=== PATIENT | male | born 1965 | race Caucasian/White ===

== ENCOUNTER 2016-06-27 11:09 | Day surgery (SDC) | payer OTHER ==
[2016-06-27] MEDS ORDERED: IV START KIT ONE (11:14)
[2016-06-27] MEDS ORDERED: LACTATED RINGERS 1,000 ML ONE (11:14)
[2016-06-27] MEDS ORDERED: CEFAZOLIN SODIUM 2 GRAM PREMIX 2 G in Premix (D5W) 100 ml 1 EACH IV PRN (11:39)
[2016-06-27] MEDS ORDERED: CEFAZOLIN SODIUM 2 GRAM PREMIX 100 ML IV ONE (11:39)
[2016-06-27] MEDS ORDERED: LACTATED RINGERS 1,000 ML IV SCH ×3 (11:39→17:45)
[2016-06-27] MEDS ORDERED: LIDOCAINE 1% 2 ML VIAL ID PRN (11:39)
[2016-06-27] MEDS ORDERED: FENTANYL 100 MCG/2 ML VIAL ONE ×2 (13:53→15:16)
[2016-06-27] MEDS ORDERED: LIDOCAINE 1%/EPI 1:100,000 (MULTI DOSE) 30 ML VIAL ONE (13:56)
[2016-06-27] MEDS ORDERED: METOCLOPRAMIDE HCL 5 MG/ML 2ML VIAL ONE (14:19)
[2016-06-27] MEDS ORDERED: PROPOFOL 20 ML IV ONE (14:19)
[2016-06-27] MEDS ORDERED: ROCURONIUM BROMIDE 10 MG/ML DOSE IV ONE ×2 (14:19→16:51)
[2016-06-27] MEDS ORDERED: HYDROMORPHONE HCL 2 MG/ML SYRINGE ONE (14:20)
[2016-06-27] MEDS ORDERED: ATROPINE SULFATE 0.4 MG/1 ML VIAL IV PRN (14:33)
[2016-06-27] MEDS ORDERED: HYDRALAZINE HCL 20 MG/1 ML VIAL IV PRN (14:33)
[2016-06-27] MEDS ORDERED: MORPHINE SULFATE 4 MG/ML SYRINGE IV PRN (14:33)
[2016-06-27] MEDS ORDERED: NALOXONE HCL 0.4 MG/ML VIAL IV PRN (14:33)
[2016-06-27] MEDS ORDERED: PROMETHAZINE HCL 25 MG/ML VIAL IM PRN (14:33)
[2016-06-27] MEDS ORDERED: ONDANSETRON 4 MG/2ML 2 ML VIAL IV PRN ×2 (14:33→17:45)
[2016-06-27] MEDS ORDERED: MEPERIDINE 25 MG/ML SYRINGE IV PRN (14:33)
[2016-06-27] MEDS ORDERED: ONDANSETRON 4 MG/2ML 2 ML VIAL ONE (16:51)
[2016-06-27] MEDS ORDERED: MEPERIDINE 25 MG/ML SYRINGE ONE (17:31)
[2016-06-27 17:41] LABS: HEMATOCRIT 34.5 % (32.0-52.0); HEMOGLOBIN 11.3 gm/l (14.0-18.0)
[2016-06-27] MEDS ORDERED: HYDROMORPHONE HCL 1 MG/ML SYRINGE IV PRN (17:45)
[2016-06-27] MEDS ORDERED: HYDROMORPHONE HCL 0.5 MG/0.5 ML SYRINGE IV PRN (17:53)
--- NOTE | 2016-06-27 18:33 | PCMBPN ---
Brief Post Op Note: Date of Procedure: 06/27/16 Preoperative Diagnosis: 1. RIH Postoperative Diagnosis: 1. Same Procedure: laparoscopic converted to open RIH repair with mesh Surgeon: Lisa Loyola MD Assist:Julia Kunz Anesthesia: general Findings: see dictation Condition: stable Complications: none IV Fluids: see anesthesia report Urine Output: see anesthesia report mLs Estimated Blood Loss: 1000 mLs Tourniquet Time: N/A Specimens: N/A Implants: 3x6cm prolene mesh Drains: [N/A]
[2016-06-27] MEDS ORDERED: OXYCODONE/ACETAMINOPHEN 5/325 MG TABLET ONE (18:48)
[2016-06-27] MEDS: OXYCODONE/ACETAMINOPHEN 5/325 MG TABLET PO PRN (18:51)
[2016-06-28] MEDS: OXYCODONE/ACETAMINOPHEN 5/325 MG TABLET PO PRN (01:09)
[2016-06-28 02:20] VITALS: BP 101/72
--- NOTE | 2016-06-28 14:00 | OP ---
Srinivas Murdock [id number] : 1965 DATE OF SERVICE: 06/27/2016 PREPROCEDURE DIAGNOSIS: Right inguinal hernia. POSTPROCEDURE DIAGNOSIS: Right inguinal hernia. PROCEDURE PERFORMED: Laparoscopic to open right inguinal hernia repair with mesh. SURGEON: Dr. Lisa Loyola ANESTHESIA: General. ENDBAND CUTTER HAND: Julia Kunz FINDINGS: A very large inguinal scarred incarcerated right inguinal hernia with actually a lot of oozing and bleeding during the procedure even when using a Ligasure. I was unable to complete the procedure laparoscopically because of the oozing and bleeding, unknown the reason for the bleeding, generally this is very avascular. I kept trying to continue on thinking I would get past the area that was bleeding and I just was not able to. Eventually, I decided after getting bleeding under control and being unsuccessful with continuing dissection and getting into more bleeding that I would just get hemostasis and then go to open. TECHNIQUE: The patient was brought back to the operating room and placed under general anesthesia. The abdomen, inguinal, and scrotal regions were prepped and draped in sterile surgical fashion. Local anesthetic was placed just inferior to the umbilicus and a 15 blade scalpel was used to make a 3 cm transverse incision. Electrocautery was used to cut through the subcutaneous tissue down to the level of the fascia. The fascia was opened in the anterior rectus sheath with electrocautery and the rectus muscle was pushed aside and a spacer port was placed anterior to the posterior rectus sheath and placed down to the pubic tubercle and into position. Then the camera was placed down the port and the balloon was inflated 35 times. Once that was up it was noted to be in good position on camera. I could see the pubic tubercle clearly and there was no bowel on the camera. Once we held that in place for about 30 seconds we deflated it, pulled the camera and the balloon out and inflated the spacer balloon that holds the port in place and then placed our CO2 at 15 mmHg. I used Kittner's to open up the dissection and get the peritoneum down everywhere except for at the basic hernia site. Then I looked at the hernia site and there was a massive glob of tissue between the femoral and inguinal areas and I started out superior and lateral as this is generally the area of the hernia. I tried to figure out where exactly and there really was not much of a plane. There is usually more of a plane that is easier to find and just trying to tease apart with the Kittner's and not really dissecting that hard all of the sudden I had a lot of bleeding. I got the suction irrigation out and suctioned the area. Tried to use a clip public address announcer to get control of the bleeding and then continued dissection only to have some more bleeding. I used the clip public address announcer again for control and then thought okay I am most likely passed and then continued more dissection and had some more oozing, so then I got the Ligasure out thinking I would just divide the sac down that is around this hernia and get down underneath it and then pull the hernia down after getting through the thick sac. I started dissecting with this and even had oozing just with dissecting with the Ligasure itself, so I would use the Ligasure and have oozing and I would have to stop and get control of it with the Ligasure and continue dissection. I started worrying that I might have bladder wall or something stuck in the hernia as everything was so stuck together and cemented together and I did not have really good planes like I normally have, so I decided to end my dissection because I did not want to get into anything structure jim that I did not want to be in, so I made sure I had good hemostasis and then decided to deflate the area, pull out my ports, and switch to an open operation. I put local anesthetic in and made an oblique incision just above the pubic tubercle about 5 cm in length and used electrocautery to cut down to the external oblique. I then found the internal ring and made a small jl in the fascia just lateral to that and used Metzenbaum scissors to open that area up being careful to only open the external oblique. Once I had that opened I got two 06:37 and opened the cremasteric fibers apart and I noticed that really was not no floor that the patient had. He had a direct hernia as well as indirect hernia and then dissected everything down and put the hernia back down into the abdomen. There was quite a lot of hernia sac and fatty tissue with it. When I it all and put it back into the abdomen I still really was not able to see where all the oozing had come from because it was a lot more deep inside and feeling with the tip of my finger down inside into the internal ring I felt like there was a lot of tissue around the hernia sac, so there must have been a lot of extra tissue there, but I got the hernia reduced and really skeletonized the cord structures and then had everything freed up from the floor which was really weak and then I took a 3 x 6 Prolene mesh and cut it to fit the inguinal area and cut a slit in it for where the cord would go through. Then I used a 2-0 Prolene in running fashion, connected it to the pubic tubercle, and along the inguinal ligament. When I got out laterally I tacked the superior leaf of the mesh to the inferior leaf making a little keyhole if you will for the cord structure to go through so it was a snug fit, but not strangulating for the cord structures. Once that was done I did interrupted Prolene's all the way around at the pubic tubercle and conjoined tendon so that the mesh was in good position so that there was a nice relaxed patch on there without being under tension. Once all of that was in good position, I irrigated the area. I did unfortunately kind of secure down the external oblique under the mesh a little bit on the superior side, so I was unable to close the external oblique, so I closed charanjit's fascia with a running 2-0 Vicryl and then I closed the deep dermis with 3-0 Vicryl and closed the skin with 4-0 Monocryl. Steri-Strips were applied and the patient was awakened and return to recovery room in stable condition. All needle, instrument, and sponge counts were correct at the end of the case. JOB: [id number]
== END 2016-06-28 01:15 | disposition home or self-care (01) ==
LOC: SDC 11:09 → MS 20:35 → SDC 06-28 01:15
PROVIDERS: ATTEND Surgery
PROC: 0YU50JZ Supplement Right Inguinal Region with Synthetic Substitute, Open Approach (ICD-10-PCS; principal; 2016-06-27)
DX: K40.90 Unilateral inguinal hernia, without obstruction or gangrene, not specified as recurrent (principal)
CPT/HCPCS: 85014; 85018; 36415; 49507; J2175; J1170; J3010 ×2; A9270 ×2; J2765; J2001; J2405; J7120; J0690